=== PATIENT | female | born 1995 | race Hispanic/Latino ===

== ENCOUNTER 2020-08-18 16:27 | Emergency (ER) | payer BC ==
[~2020-08-18] VITALS: Ht 160 cm; Wt 86.2 kg
[2020-08-18 18:19] VITALS: BP 136/62
== END 2020-08-18 18:19 | disposition home or self-care (01) ==
LOC: ER 18:07
DX: R22.0 Localized swelling, mass and lump, head (principal)
CPT/HCPCS: 99282